=== PATIENT | female | born 1950 | race African-American/Black ===

== ENCOUNTER 2022-05-16 23:00 | Emergency (ER) | payer OTHER ==
[~2022-05-16] VITALS: Ht 162.6 cm; Wt 68.5 kg
[2022-05-16 23:00] VITALS: TEMP 98.1
[~2022-05-16 23:00] MED LIST: ACET-206 PO; ASPIRIN DR81 MG PO; CHOL100034 PO; DONE5TAB PO; DONEPEZIL HYDRO10 MG PO; ENTERIC COATED325 MG PO; ESCI10TA PO; ESCI20TA PO; FOLI1TAB26 PO; ISOS30TA17 PO; LISI20TA11 PO; MAGN400T4 PO; MAGOX 400400 M1 PO; MEMA10TA2 PO; PRAVASTATIN PO; QUET25TA2 PO; TRAZ50TA36 PO; TRIA0.1C19 TOP
[2022-05-16 23:42] LABS: PLATELET COUNT 303 K/uL (152-353)
[2022-05-17 00:25] VITALS: BP 152/57
[2022-05-17] MEDS ORDERED: TYLENOL325 MG PO (08:27)
[2022-05-17] MEDS ORDERED: VITAMIN D325 MCG PO (08:29)
[2022-05-17] MEDS ORDERED: QUETIAPINE25 MG PO (08:35)
[2022-05-17] MEDS ORDERED: TRIA0.1C19 TOP (08:37)
== END 2022-05-17 00:25 | disposition still patient (30) ==
LOC: ED 23:00
PROVIDERS: Emergency Medicine
DX: F33.9 Major depressive disorder, recurrent, unspecified (principal); F03.911 Unspecified dementia, unspecified severity, with agitation; Z11.52 Encounter for screening for COVID-19; Z04.6 Encounter for general psychiatric examination, requested by authority
CPT/HCPCS: 36415; 80053; 85027; 87635; 93005; 99283; U0003